=== PATIENT | male | born 1935 | race Caucasian/White ===

== ENCOUNTER 2020-09-13 16:02 | Emergency (ER) | payer MEDICARE ==
--- NOTE | 2020-09-13 16:57 | EDM.PDOC ---
<Matt Ellison - Last Filed: 09/13/20 17:38> ED HPI GENERAL MEDICAL PROBLEM - General Chief Complaint: General Stated Complaint: DIZZINESS AND CONFUSION Time Seen by Provider: 09/13/20 16:40 Source of Information: Reports: Patient, Family. Denies: Old Records History Limitations: Reports: Other (no old records) - History of Present Illness INITIAL COMMENTS - FREE TEXT/NARRATIVE: 85 yo male presents with some generalized weakness and light-headedness. Sx's began last night. No pain or fever or diarrhea or bleeding. [place] a cabin locally, but no local doctor. Onset: Gradual Onset Date: 09/12/20 Duration: Hour(s): (approx 20 hrs), Constant Location: Reports: Generalized Quality: Reports: Other (no pain) Severity: Moderate Improves with: Reports: Rest (lying) Worsens with: Reports: Other (standing/walking) Context: Reports: Other (See HPI) Associated Symptoms: Reports: Malaise, Nausea/Vomiting (mild nausea at times), Weakness (generalized). 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 (see below) (none) Left Neck Pain Score (Numeric/FACES): 2 - Related Data Allergies Allergy/AdvReac Type Severity Reaction Status Date / Time Penicillins Allergy Hives Verified 09/13/20 16:37 Home Meds: Home Meds Metoprolol Succinate [Toprol XL 100mg] 100 mg PO DAILY 09/13/20 [History] Rosuvastatin [Crestor] 10 mg PO DAILY 09/13/20 [History] lisinopriL [Lisinopril] 10 mg PO DAILY 09/13/20 [History] methocarbamoL [Robaxin] 750 mg PO TID PRN 09/13/20 [History] Past Medical History HEENT History: Reports: Cataract Cardiovascular History: Reports: High Cholesterol, Hypertension Gastrointestinal History: Reports: Cholelithiasis, Pancreatitis Genitourinary History: Reports: Renal Calculus - Past Surgical History HEENT Surgical History: Reports: Cataract Surgery Cardiovascular Surgical History: Reports: Coronary Artery Bypass, Valve Replacement, Other (See Below) Other Cardiovascular Surgeries/Procedures: open heart surgery GI Surgical History: Reports: Cholecystectomy, Small Bowel Musculoskeletal Surgical History: Reports: Hip Replacement Social & Family History - Tobacco Use Tobacco Use Status *Q: Never Tobacco User Second Hand Smoke Exposure: No - Caffeine Use Caffeine Use: Reports: Coffee - Recreational Drug Use Recreational Drug Use: No ED ROS GENERAL - Review of Systems Review Of Systems: See Below Constitutional: Reports: Malaise, Weakness (generalized) HEENT: Reports: No Symptoms Respiratory: Reports: No Symptoms Cardiovascular: Reports: Lightheadedness Endocrine: Reports: No Symptoms GI/Abdominal: Reports: No Symptoms : Reports: No Symptoms Musculoskeletal: Reports: Neck Pain (post/left-not new, may be a little worse today) Skin: Reports: No Symptoms Neurological: Reports: No Symptoms Psychiatric: Reports: No Symptoms ED EXAM, GENERAL - Physical Exam Exam: See Below Exam Limited By: No Limitations General Appearance: Alert, WD/WN, No Apparent Distress Eye Exam: Bilateral Eye: Normal Inspection Ears: Normal External Exam, Normal Canal, Hearing Loss Ear Exam: Bilateral Ear: Auricle Normal, Canal Normal Nose: Normal Inspection, No Blood Throat/Mouth: Normal Inspection, Normal Lips, Normal Oropharynx, Normal Voice, No Airway Compromise Head: Atraumatic, Normocephalic Neck: No: Non-Tender (has some post/Left lateral muscle soreness. ) Respiratory/Chest: No Respiratory Distress, Lungs Clear, Normal Breath Sounds Cardiovascular: Regular Rate, Rhythm, No Edema GI/Abdominal: Normal Bowel Sounds, Non-Tender Back Exam: Normal Inspection. No: CVA Tenderness (R), CVA Tenderness (L) Extremities: Normal Inspection, Normal Range of Motion, Non-Tender, No Pedal Edema Neurological: Alert, Oriented, CN II-XII Intact, Normal Cognition, No Motor/Sensory Deficits Psychiatric: Normal Affect, Normal Mood Skin Exam: Warm, Dry, Intact, Normal Color, No Rash Departure - Departure Disposition: Home, Self-Care 01 Clinical Impression: Dizziness, Moderate dehydration - Discharge Information Instructions: Dehydration, Adult, [id number] Referrals: PCP,None [Primary Care Provider] - Forms: ED Department Discharge Care Plan Goals: Relax for the next day or so, concentrate on staying hydrated and increase activity as tolerated. Continue any prescription medications as prescribed and return anytime if you feel you are worsening or develop other concerns. Sepsis Event Note (ED) - Evaluation Sepsis Screening Result: No Definite Risk <Giovanni Marcelino - Last Filed: 09/13/20 20:48> Course - Vital Signs Last Recorded V/S: Last Vital Signs Temp 97.6 F 09/13/20 16:46 Pulse 47 L 09/13/20 18:24 Resp 16 09/13/20 16:46 BP 122/56 L 09/13/20 18:24 Pulse Ox 99 09/13/20 18:24 - Orders/Labs/Meds Labs: Laboratory Tests 09/13/20 09/13/20 09/13/20 Range/Units 17:03 17:03 17:05 WBC 6.1 (4.5-11.0) K/uL RBC 4.93 (4.30-5.90) M/uL Hgb 15.0 (12.0-15.0) g/dL Hct 44.4 (40.0-54.0) % MCV 90 (80-98) fL MCH 30 (27-31) pg MCHC 34 (32-36) % Plt Count 173 (150-400) K/uL Sodium 141 (140-148) mmol/L Potassium 4.7 (3.6-5.2) mmol/L Chloride 104 (100-108) mmol/L Carbon Dioxide 28 (21-32) mmol/L Anion Gap 9.3 (5.0-14.0) mmol/L BUN 19 H (7-18) mg/dL Creatinine 1.4 H (0.8-1.3) mg/dL Est Cr Clr Drug Dosing 34.18 mL/min Estimated GFR (MDRD) 48 L (>60) Glucose 99 (74-106) mg/dL Calcium 9.7 (8.5-10.1) mg/dL Troponin I < 0.017 (0.000-0.056) ng/mL Urine Color Yellow (YELLOW) Urine Appearance Clear (CLEAR) Urine pH 6.5 (5.0-8.0) Ur Specific [place] 1.020 (1.008-1.030) Urine Protein Negative (NEGATIVE) mg/dL Urine Glucose (UA) Negative (NEGATIVE) mg/dL Urine Ketones Negative (NEGATIVE) mg/dL Urine Occult Blood Negative (NEGATIVE) Urine Nitrite Negative (NEGATIVE) Urine Bilirubin Negative (NEGATIVE) Urine Urobilinogen 0.2 (0.2-1.0) EU/dL Ur Leukocyte Esterase Negative (NEGATIVE) Urine RBC 0-5 (0-5) Urine WBC 0-5 (0-5) Ur Epithelial Cells Not seen Amorphous Sediment Not seen Urine Bacteria Not seen Urine Mucus Few Meds: Medications Discontinued Medications Generic Name Dose Route Start Last Admin Trade Name Obdulia PRN Reason Stop Dose Admin Sodium Chloride 1,000 mls @ 1,000 mls/hr 09/13/20 17:33 09/13/20 17:48 Normal Saline IV 09/13/20 18:32 1,000 mls/hr .BOLUS ONE Administration Ibuprofen 400 mg 09/13/20 17:37 09/13/20 17:48 Ibuprofen 400 Mg Tab PO 09/13/20 17:38 400 mg ONETIME ONE Administration - Re-Assessments/Exams Free Text/Narrative Re-Assessment/Exam: 09/13/20 19:01 Care turned over from Dr. Ellison pending finishing his IV fluids. Patient feels well, symptoms are resolved and he wants to be discharged. He will return if symptoms recur or he develops other concerns. Departure - Departure Time of Disposition: 19:03 Sepsis Event Note (ED) - Focused Exam Vital Signs: Vital Signs Temp Pulse Resp BP Pulse Ox 09/13/20 18:24 47 L 122/56 L 99 09/13/20 17:27 52 L 127/69 99 09/13/20 16:46 97.6 F 54 L 16 140/60 93 L 09/13/20 16:30 97.6 F 54 L 16 140/60 93 L
[2020-09-13] MEDS ORDERED: Sodium Chloride 0.9% 1,000 ML IV ONE (17:33)
[2020-09-13] MEDS ORDERED: Ibuprofen 400 MG Tab PO ONE (17:37)
== END 2020-09-13 19:13 | disposition home or self-care (01) ==
LOC: JP.ED 16:02
DX: E86.0 Dehydration (principal); M54.2 Cervicalgia; E78.00 Pure hypercholesterolemia, unspecified; I10 Essential (primary) hypertension; Z88.0 Allergy status to penicillin; Z79.899 Other long term (current) drug therapy
CPT/HCPCS: 36415; 80048; 81001; 84484; 85027; 99284; A9270; J7030